=== PATIENT | female | born 1965 | race Caucasian/White ===

== ENCOUNTER → 2018-05-22 | Outpatient (CLI) | payer OTHER ==
[~2018-05-22] VITALS: Ht 162.6 cm; Wt 107.0 kg
[~2018-05-22] MED LIST: ABILIFY 5 MG TAB5 M1 PO; ADULT LOW DOSE81 MG PO; ALBUTEROL2.5 MG/31 INH; ASPIR 8181 MG PO; ASPIRIN325 PO; ATORVASTATIN CA40 MG PO; BENADRYL25 MG PO; CARAFATE 1 GM TA1 G1 PO; CLARITIN10 MG PO; CYMBALTA60 MG PO; EFFIENT10 MG PO; GLUCOPHAGE1000 MG PO; HUMALOG100 UNIT/1 SUBQ; IMDUR 30 MG TAB30 M1 PO; KLOR-CON 88 ME1 PO; LANTUS100 UNIT/M SUBQ; LASIX 20 MG TAB20 MG PO; NOVOLIN N100 UNIT/1 SUBQ; PERCOCET PO; PROAIR HFA8.5 GM INH; PROTONIX40 M1 PO; UNICOMPLEX M TA1 TA1 PO; ZANAFLEX4 MG PO
[2018-05-22 09:12] VITALS: BP 130/84
[2018-05-22 10:30] LABS: HEMATOCRIT 39.1 % (37.0-47.0); HEMOGLOBIN 13.1 gm/dL (12.0-15.0); MCH 28.4 pg (26.0-34.0); MCHC 33.4 g/dL (28.0-37.0); MCV 85.2 fL (80.0-100.0); RBC 4.59 mil/uL (4.20-5.00); RDW 13.5 % (10.5-14.5)
[2018-05-22 10:42] LABS: CALCIUM 9.8 mg/dL (8.5-10.1); CREATININE 0.8 mg/dL (0.6-1.0); POTASSIUM 4.6 mmol/L (3.5-5.1)
[2018-05-22 10:43] LABS: PROTIME 10.5 Seconds (9.3-11.4)
--- NOTE | 2018-05-22 12:17 | H ---
[facility] [place] [address] HISTORY AND PHYSICAL Name: YOANNAALMAZ LOUIE Room #: REG [facility] Deb#: [id number] Admission: 05/22/18 Attend Phys: Mekhi Mary Discharge: Date of : 61 Report #: [id number] THIS REPORT FOR: //name// CC: FAM unknown Mekhi Mary DATE OF SERVICE: 05/22/2018 HISTORY OF PRESENT ILLNESS: This is a very pleasant female who was seen in consultation from [facility], full dictation is noted from there. She was having episodes of exertional chest tightness, heaviness and fullness typical to her pre-stenting symptomatology. She has not been seen for quite some time and not been following any type of secondary prevention. She states the discomfort is exertional with fullness and pressure sensation noted. PHYSICAL EXAMINATION: GENERAL: Well-developed white female, resting comfortably in no acute distress. VITAL SIGNS: Noted in the chart. HEENT: Normocephalic, atraumatic. Pupils are equal, round, reactive to light and accommodation. Extraocular muscles are intact. Sclerae and conjunctivae are anicteric. NECK: JVD is normal. Carotid upstrokes are bilaterally symmetrical. No bruits are heard. No thyromegaly. No lymphadenopathy. LUNGS: Clear to auscultation. No wheezes, rhonchi or crackles. No CVA tenderness. CARDIAC: Demonstrates a regular rhythm. Normal first and second heart sounds. No ventricular or atrial gallops, no rubs noted. No murmurs. No lifts or heaves, PMI normal. ABDOMEN: Soft, nontender, nondistended. Normal bowel sounds. EXTREMITIES: Without cyanosis, clubbing or edema. Distal pulses are intact. DTR symmetrical. NEUROLOGIC: Cranial nerves 2-12 are grossly normal and symmetrical. PSYCHIATRIC: Alert, oriented with normal affect. SKIN: Warm and dry. IMPRESSION: Chest discomfort with anginal equivalent and dyspnea in an individual that has known coronary artery disease. Options of noninvasive versus invasive were discussed with the patient in view of her symptoms being exactly what she has had previously and worsening pattern, cardiac catheterization was recommended. The risks, complications and alternatives to cardiac catheterization, percutaneous revascularization, conscious sedation have [address] [address] HISTORY AND PHYSICAL Name: ALMAZ LENZ Room #: REG [facility] Deb#: [id number] Admission: 05/22/18 Attend Phys: Mekhi Mary Discharge: Date of : 61 Report #: [id number] been discussed with the patient. She voices understanding and wishes to proceed. <ELECTRONICALLY SIGNED> By: Mekhi Mary MD 05/22/18 1217 1114 [id number] Mekhi Mary MD /nt
--- NOTE | 2018-05-22 14:30 | EKG ---
[address] [address] ELECTROCARDIOGRAM REPORT Name: YO[facility]ALMAZ PALMA [id number] Admission: 05/22/18 Attend Phys: Mekhi Mary Discharge: Date of : 61 Report #: [id number] THIS REPORT FOR: //name// [facility] Test Date: 2018-05-22 Test Time: 10:35:24 Pat Name: ALMAZ LENZ Department: Room: Gender: F Ship'S Master: Tomas MARQUEZ : 1965 Requested By: Mekhi Mary Order Number: [id number] MD: David Duran Measurements Intervals [place] Rate: 86 P: 72 CT: 157 QRS: 29 QRSD: 81 T: 35 QT: 372 QTc: 445 Interpretive Statements Sinus rhythm Low voltage, precordial leads Compared to ECG 05/29/2014 21:13:57 Low QRS voltage now present Electronically Signed On 05-22-2018 14:30:30 CREATIVE SERVICES COORDINATOR by David Duran [email or web address] <ELECTRONICALLY SIGNED> By: David Duran MD 05/22/18 1430 1035 103 David Duran MD /MARK
--- NOTE | 2018-05-22 16:42 | CATHLAB ---
[facility] [address] [place] [address] INVASIVE PROCEDURE REPORT Name: YOANNAALMAZ Room #: REG Deb#: [id number] Admission: 05/22/18 Attend Phys: Mekhi Crooks Discharge: Date of : 61 Date of Service: 05/22/18 1642 Report #: [id number] THIS REPORT FOR: //name// APPROVED REPORT Study performed: 05/22/2018 10:08:57 Patient Details Patient Status: Out-Patient Room #: The patient is a 53 year-old female Event Personnel Mekhi Mary Processing Clerk, Jason Cooper RN, Iris Hall RTR, ALBIN Hartman, Tejas Chiu Monitor Procedures Performed Left Heart Cath w/or w/o Coronaries [id number] [facility], supervision of conscious sedation Indication Chest pain, Prior stenting of the left circumflex coronary artery Risk Factors Dysplipidemia , Coronary Artery Disease, Diabetes Procedure Narrative The Right Groin^ was infiltrated with 1% Lidocaine subcutaneous anesthesia. A PINNACLE 5FR Sheath #[id number] sheath was inserted into the RFA^. Coronary angiography was performed using coronary diagnostic catheters. The right coronary system was accessed and visualized with a 5FR AL1 #[id number] catheter. The left coronary system was accessed and visualized with a JL4 catheter. The left ventricle was accessed and visualized with a 5FR AL1 #[id number] catheter. Left ventricular/Aortic Valve gradient assessed via catheter pullback. Closure device was deployed with a 5 Fr MYNXGRIP 5F #[id number]. Intraoperative Conscious Sedation Sedation start time: 11.27 Case end Time: 11.59 Versed 3 mg Fluoro Time: 8.49 minutes [facility] [address] [place] [address] INVASIVE PROCEDURE REPORT Name: ALMAZ LENZ Room #: REG [facility]#: [id number] Admission: 05/22/18 Attend Phys: Mekhi Crooks Discharge: Date of : 61 Date of Service: 05/22/18 1642 Report #: [id number] Dose: DAP 89703 cGycm2 1511 mGy Coronary Angiography The patient's coronary anatomy is left dominant. Diagnostic Cath Left Main Left main is of normal origin and moderate to large caliber bifurcates left anterior descending left circumflex. It is free of significant high-grade lesions LAD Moderate to small caliber type III vessel which courses in the anterior interventricular sulcus giving rise to septal and diagonal branches. It has only luminal irregularities noted no obstructive high-grade lesions present Diagonal 1 All caliber vessel without significant high-grade lesions present Circumflex Large-caliber dominant vessel which gives rise to an early marginal branch which is moderate in the small in size. Is a mild irregularity at its ostium but otherwise no significant lesion that's it courses along the lateral aspect of the ventricle. The second marginal branch is a moderate caliber vessel which was previously stented. The stent is widely patent with only mild in-stent restenosis of less than 25%. The vessel then continues on supplying the inferolateral aspect of the left ventricle without high-grade lesions. Circumflex continues in the AV groove posteriorly to the crux of the heart reveals rise to small caliber dosage ascending artery. At the crux of the heart there appears to be an eccentric circumflex which is no worse than 50% OM1 Small-caliber vessel without high-grade lesions OM2 Moderate caliber vessel with a patent stent and only mild in-stent restenosis L PDA All caliber vessel has a ostial proximal 50% lesion noted which is not flow-limiting Right Coronary Difficulty cannulating the vessel and was visualized with a cusp shot. It is a nondominant vessel small-caliber Left Ventriculography Left Ventriculography was not performed. Hemodynamics [facility] [address] [place] [address] INVASIVE PROCEDURE REPORT Name: LIN LENZLENA HARMANAN Room #: REG [facility]#: [id number] Admission: 05/22/18 Attend Phys: Mekhi Crooks Discharge: Date of : 61 Date of Service: 05/22/18 1642 Report #: [id number] The aortic pressure is 142/83 mmHg with a mean of 97 mmHg. The left ventricular pressure is 137/23 mmHg with a mean of mmHg. The left ventricular end diastolic pressure is 34 mmHg. There was no gradient across the aortic valve upon pullback. Pullback from the left ventricle to the aorta revealed no gradient across the aortic valve. Conclusion 1. Coronary artery disease single vessel, mild nonobstructive 2. Patent left circumflex second marginal stent with only 25% in-stent restenosis 3. Abnormal hemodynamics with mildly elevated liver ventricular end-diastolic pressure Recommendations Cardiac Risk Reduction Program Medical Therapy <ELECTRONICALLY SIGNED> By: Mekhi Mary MD 05/22/181641 41 41 Mekhi Mary MD /INF
== END | disposition home or self-care (01) ==
LOC: CATH 07:08
PROVIDERS: Internal Medicine
DX: I25.10 Atherosclerotic heart disease of native coronary artery without angina pectoris (principal); I50.1 Left ventricular failure, unspecified; E11.9 Type 2 diabetes mellitus without complications; E78.5 Hyperlipidemia, unspecified; J44.9 Chronic obstructive pulmonary disease, unspecified; K21.9 Gastro-esophageal reflux disease without esophagitis; E66.09 Other obesity due to excess calories; M19.90 Unspecified osteoarthritis, unspecified site; F41.9 Anxiety disorder, unspecified; F32.9 Major depressive disorder, single episode, unspecified; M54.5 Low back pain; G89.29 Other chronic pain; Z82.49 Family history of ischemic heart disease and other diseases of the circulatory system; Z79.899 Other long term (current) drug therapy; Z88.8 Allergy status to other drugs, medicaments and biological substances; Z90.710 Acquired absence of both cervix and uterus; Z95.5 Presence of coronary angioplasty implant and graft; Z79.4 Long term (current) use of insulin; Z98.890 Other specified postprocedural states